=== PATIENT | female | born 1965 | race Caucasian/White ===

== ENCOUNTER 2021-08-16 13:52 | Outpatient (CLI) | payer BC, SELFPAY ==
--- NOTE | 2021-08-16 13:56 | CT_ITS ---
STUDY: CT ABDOMEN AND PELVIS WITH AND WITHOUT CONTRAST REASON FOR EXAM: Female, 55 years old. Hematuria.Renal cyst. RADIATION DOSAGE (If Supplied By Facility): CTDIvol = ( 19.10 ) mGy, DLP = ( 2843.01 ) mGycm TECHNIQUE: Transaxial images were obtained from the dome of the diaphragm to the symphysis pubis without oral contrast. 100mL [id number] was administered. Sagittal and coronal images were reconstructed. Individualized dose optimization techniques were used for this CT. COMPARISON: None. FINDINGS: The visualized lung bases are unremarkable. The visualized portions of the heart are within normal limits. There is decreased attenuation of the liver consistent with steatosis. There are surgical clips in the gallbladder fossa consistent with a prior cholecystectomy. The common bile duct measures 1.15 cm. Normal spleen. Normal pancreas. Normal bilateral adrenal glands. Normal right kidney. There is a 4.1 mm calculus in the mid posterior pole of the left kidney. There is a small hiatal hernia. Normal small intestine. There are scattered colonic diverticula consistent with diverticulosis. The appendix is visualized and appears normal. Normal abdominal aorta. Normal inferior vena cava. Normal retroperitoneum. Normal urinary bladder. There is absence of the uterus consistent with a prior hysterectomy. Normal abdominal wall. Normal osseous structures. CT/CT Abd/Pelvis W/WO Contrast IMPRESSION: 4.1 mm nonobstructive calculus in the mid posterior pole calyx of the left kidney. Electronically Signed: Lucio Espinosa MD at 14:57 EST ,
== END 2021-08-16 23:59 | disposition home or self-care (01) ==
PROVIDERS: PCP Nurse Practitioner Family; Referring Provider Urology; Visit Provider Urology
DX: N20.0 Calculus of kidney (principal); N28.1 Cyst of kidney, acquired; R14.0 Abdominal distension (gaseous); R10.9 Unspecified abdominal pain
CPT/HCPCS: 74178; Q9967

== ENCOUNTER 2021-08-26 10:26 | Outpatient (CLI) | payer BC, SELFPAY ==
--- NOTE | 2021-08-26 10:34 | RAD_ITS ---
STUDY: X-RAY - ABDOMEN/PELVIS REASON FOR EXAM: Female, 55 years old. Flank pain TECHNIQUE: Single AP view of the abdomen / pelvis. COMPARISON: CT from 08/16/2021 FINDINGS: Normal visualized lung bases. There is an unremarkable bowel gas pattern. There is no demonstrated free abdominal air. The visualized liver, spleen and kidneys are grossly normal in size and morphology. There are calcified phleboliths in the pelvis. Normal visualized osseous structures. RAD/Abdomen Single View IMPRESSION: No acute findings, specifically, no suspicious calcifications overlying either renal shadow, or along the expected course of either ureter. Electronically Signed: Ze Ribera MD at 16:38 EST ,
== END 2021-08-26 23:59 | disposition home or self-care (01) ==
LOC: MTRAD 10:30
PROVIDERS: PCP Nurse Practitioner Family; Referring Provider Urology; Visit Provider Urology
DX: N20.0 Calculus of kidney (principal)
CPT/HCPCS: 74018

== ENCOUNTER 2021-09-03 16:26 | Outpatient (CLI) | payer BC, SELFPAY ==
[2021-09-03 18:01] LABS: Lipase 91 U/L (73-393); T4 Free Direct 1.04 ng/dL (0.76-1.46); Thyroid Stim Hormone (TSH) 1.46 uIU/mL (0.358-3.74)
[2021-09-05 18:52] LABS: H. Pylori Antibody (IgG) 0.14 (0.00-0.79); Thyroid Peroxidase AB < 8 IU/mL (0-34)
== END 2021-09-03 23:59 | disposition home or self-care (01) ==
LOC: MTLAB 16:28
PROVIDERS: PCP Nurse Practitioner Adult Health; Referring Provider Nurse Practitioner Adult Health; Visit Provider Nurse Practitioner Adult Health
DX: R11.0 Nausea (principal)
CPT/HCPCS: 36415; 83690; 84439; 84443; 86376; 86677

== ENCOUNTER 2021-09-18 12:53 | Emergency (ER) | payer BC, SELFPAY ==
[2021-09-18 12:54] VITALS: BP 154/77; PULSE 91; RESP 16; TEMP 36.6; O2SAT 98; BMI 32.4
--- NOTE | 2021-09-18 13:36 | EX.ED.DYSGE1 ---
HPI History of Present Illness Chief Complaint: Abd Pain Narrative Narrative: Patient presents with right upper quadrant abdominal pain and epigastric pain for about 2 months. It is worse with food. No fever chills cough or congestion. The pain does not radiate to her back, she is status post a cholecystectomy. Pain sometimes gets better with antacids and she is now on Prevacid. She does have an appointment in 2 weeks with [facility] Medical History Anxiety Chest pain Easy bruising Encounter for screening for COVID-19 Fatty liver Gastric reflux History of diverticulosis History of hiatal hernia History of rheumatic fever Injury of head and neck Non-smoker Rheumatoid arthritis Shortness of breath on exertion Wears glasses Home Medications ergocalciferol (vitamin D2) [Vitamin D2] 10 mcg PO DAILY 09/16/21 [History Last Taken Unknown] lansoprazole [Prevacid] 30 mg PO DAILY 09/16/21 [History Last Taken Unknown] psyllium [Metamucil] 1 packet PO DAILY 09/16/21 [History Last Taken Unknown] vitamin [id number]-[id number] acid 1 tab PO DAILY 09/16/21 [History Last Taken Unknown] sucralfate [Carafate] 1 g PO BID #20 tab 09/18/21 [Rx Last Taken Unknown] Allergy/AdvReac Type Severity Reaction Status Date / Time acetaminophen [From Vicodin] Allergy Unknown unknown Verified 07/11/21 10:10 codeine Allergy Unknown unknown Verified 07/11/21 10:10 hydrocodone [From Vicodin] Allergy Unknown unknown Verified 07/11/21 10:10 latex Allergy Unknown unknown Verified 07/11/21 10:10 epinephrine Allergy Chest Verified 09/16/21 13:52 tightness pantoprazole Allergy Nausea/Vom/ Verified 09/18/21 12:53 Diarrhea prednisone Allergy Swelling Verified 09/16/21 13:52 Family History Other Kidney disease Surgical History H/O: hysterectomy History of tonsillectomy Hx of cholecystectomy Hx of hand surgery Hx of shoulder surgery Social History Smoking Status: Never smoker ROS ROS ED ROS Narrative Past medical history: Reviewed overall unremarkable, she is status post a cholecystectomy. Medications: Reviewed Social history: Noncontributory Review of systems: All systems negative except as indicated General: No fever Eyes: No visual changes ENT: No upper airway congestion, normal voice Neck: No neck pain Cardiovascular: No chest pain Respiratory: No shortness of breath or cough Gastrointestinal: Abdominal pain as in HPI Genitourinary: No dysuria Musculoskeletal: Denies myalgias no difficulty with ambulation Skin: No rash Neurological: No memory loss, confusion or any focal weakness Psych: No recent behavioral changes Hematologic: No easy bleeding or easy bruising EXAM Physical Exam Narrative Exam Narrative: Physical exam General: Well nourished, Well developed, No Acute Distress Head: Normocephalic, Atraumatic Eyes: Conjunctiva not pale ENT: Moist mucous membranes Neck: Supple, Nontender, No lymphadenopathy Cardiovascular: Regular rate, Regular rhythm Respiratory: No distress, CTA bilaterally Abdomen: Soft, epigastric and right upper quadrant tenderness. Negative Astorga's. No lower abdominal pain. No CVA tenderness. No guarding or rebound. Back: Nontender, Normal Inspection. Negative for: CVA tenderness Extremities: Nontender, No edema Skin: Normal color, No rash Neurological: Alert, Normal Strength, Normal Sensation Psychological: Normal affect Const Vital Signs: 09/18/21 12:54 09/18/21 14:00 Temperature 97.8 F Temperature Source Temporal Pulse Rate 91 70 Respiratory Rate 16 Blood Pressure 154/77 H 137/74 H Blood Pressure Mean 102 95 Pulse Ox 98 Oxygen Delivery Method Room Air MDM MDM MDM Narrative Medical decision making narrative: Patient has an unremarkable ED work-up. She improved after GI cocktail and IV Pepcid. I will discharge her, she has an appointment with GI in 2 weeks. Otherwise I will add Carafate to her regimen of medications. Lab Data Labs: Laboratory Results - last 24 hr 09/18/21 09/18/21 13:35 13:35 WBC 5.7 RBC 4.89 Hgb 14.9 Hct 42.2 MCV 86.3 MCH 30.5 MCHC 35.3 RDW Std Deviation 39.0 RDW Coeff of Ananth 12.4 Plt Count 273 MPV 9.6 Immature Gran % (Auto) 0.400 Neut % (Auto) 66.7 Lymph % (Auto) 22.2 Hockley % (Auto) 7.7 Eos % (Auto) 2.6 Baso % (Auto) 0.4 Absolute Neuts (auto) 3.8 Absolute Lymphs (auto) 1.26 Nucleated RBC % 0 Sodium 140 Potassium 3.6 Chloride 106 Carbon Dioxide 30.0 Anion Gap 4 L BUN 12 Creatinine 0.92 Estim Creat Clear Calc 58.50 Est GFR (MDRD) Af Amer 82 Est GFR (MDRD) Non-Af 68 BUN/Creatinine Ratio 13.1 Glucose 113 H Calcium 9.3 Total Bilirubin 0.80 AST 21 ALT 30 Alkaline Phosphatase 89 Total Protein 7.3 Albumin 3.6 Globulin 3.7 Albumin/Globulin Ratio 1.0 Lipase 85 Discharge Plan Triage Chief Complaint: Abd Pain ED Provider: Demetrio Vega Dx/Rx/DC Orders Clinical Impression: Gastritis Instructions: ED Gastritis (Adult) Prescriptions: New sucralfate [Carafate] 1 gram tablet 1 g PO BID Qty: 20 RF: 0 No Action Metamucil Packet 1 packet PO DAILY RF: 0 lansoprazole [Prevacid] 30 mg Capsule,Delayed Release(Dr/Ec) 30 mg PO DAILY RF: 0 ergocalciferol (vitamin D2) [Vitamin D2] 200 mcg/mL (8,000 unit/mL) Drops 10 mcg PO DAILY RF: 0 vitamin L40-asdhu acid 2,500-400 mcg Tablet,Disintegrating 1 tab PO DAILY RF: 0 Primary Care Provider: Noreen Gamez Referrals: Wilfrid Alvarez DO [STAFF PHYSICIAN] - (As scheduled in 2 weeks) Noreen Gamez, FIBRE TECHNOLOGIST-C [Primary Care Provider] - 2 Days Disposition Disposition: Home, Self Care
[2021-09-18] MEDS: Mag Hydrox/Al Hydrox/Simeth 30 ML UDC PO (13:38)
[2021-09-18 13:49] LABS: Absolute Lymphocyte Count 1.26 X10^3/uL (0.83-4.51); Absolute Neutrophil Count 3.8 X10^3/uL (2.0-7.7); Basophil# 0.02 X10^3/uL; Basophil% 0.4 % (0-1); Eosinophil# 0.15 X10^3/uL; Eosinophils% 2.6 % (0-5); Hematocrit 42.2 % (37-47); Hemoglobin 14.9 g/dL (12.0-15.0); Lymphocyte # 1.26 X10^3/ul (0.83-4.51); Lymphocyte % 22.2 % (19-41); Mean Corp Hgb Conc 35.3 g/dL (32-36); Mean Corpuscular Hgb 30.5 pg (27.0-32.0); Mean Corpuscular Volume 86.3 fL (81-99); Mean Platelet Vol. 9.6 fl (6.2-12.0); Monocyte# 0.44 X10^3/uL; Monocyte% 7.7 % (0-10); NRBC Flagged by Analyzer 0 % (0-5); Neutrophil # 3.79 X10^3/uL (2.7-7.7); Neutrophil % 66.7 % (47-70); Platelet Count 273 K/mm3 (150-450); RBC Distribution Width CV 12.4 % (11.6-14.6); Red Blood Count 4.89 M/mm3 (4.2-5.4); White Blood Count 5.7 K/mm3 (4.4-11.0)
[2021-09-18 14:00] VITALS: BP 137/74; PULSE 70
[2021-09-18 14:04] LABS: AST(SGOT) 21 U/L (15-37); Alanine Aminotransfer ALT/SGPT 30 U/L (13-56); Albumin, Serum 3.6 g/dL (3.2-5.0); Alkaline Phosphatase 89 U/L (45-117); Anion Gap 4 (5-15); BUN 12 mg/dL (7-18); BUN/Creat Ratio 13.1 RATIO (10-20); Calcium,Total 9.3 mg/dL (8.5-10.1); Chloride 106 mmol/L (98-107); Creatinine, Serum 0.92 mg/dL (0.55-1.02); EST Glomerular Filtration Rate 68 mL/min (>60); Est Glom Filt Rate - Afr Amer 82 mL/min (>60); Globulin 3.7 g/dL (2.2-4.2); Glucose 113 mg/dL (74-106); Lipase 85 U/L (73-393); Potassium 3.6 mmol/L (3.5-5.1); Protein, Total 7.3 g/dL (6.4-8.2); Sodium Level 140 mmol/L (136-145)
[2021-09-18] MEDS: Famotidine 200 MG/20 ML MDV 20 MG in 0.9% Normal Saline (Pres. free 8 ML 300 MG IV (14:50)
[2021-09-18 15:13] VITALS: PULSE 70
== END 2021-09-18 15:13 | disposition home or self-care (01) ==
PROVIDERS: Emergency Provider Emergency Medicine; PCP Nurse Practitioner Adult Health; Visit Provider Emergency Medicine
DX: K29.70 Gastritis, unspecified, without bleeding (principal); M06.9 Rheumatoid arthritis, unspecified; K21.9 Gastro-esophageal reflux disease without esophagitis; Z79.899 Other long term (current) drug therapy
CPT/HCPCS: 80053; 83690; 85025; 96374; 99282; A4216; J3490

== ENCOUNTER 2021-09-20 05:44 | Day surgery (SDC) | payer BC, SELFPAY ==
[2021-09-20 06:19] VITALS: BP 128/63; PULSE 80; RESP 16; TEMP 36.3; O2SAT 97; BMI 32.3
[2021-09-20] MEDS: Lactated Ringers 1,000 ML 15 ML IV (06:24)
[2021-09-20] MEDS: Cefazolin 2 GM in 0.9% Normal Saline 100 ML IV (07:24)
--- NOTE | 2021-09-20 07:30 | DCINST_ITS ---
Discharge Instructions Diet Discharge Diet: No restrictions Activity Discharge Activity: Return to Normal Activity Dressing / Incision Call your doctor if you observe: Fever of 101 or Higher, Inability to urinate and Inability to have a bowel movement Follow Up Care Please Follow Up With: Ligia Booth MD When: in 3-4 weeks, call office for appt Test Results: Test results from this visit will be discussed in further detail at your follow-up appointment, if applicable. Discharge Plan Admission Attending Provider: Ligia Booth Primary Care Provider: Noreen Gamez Discharge Orders/Prescriptions Prescriptions: Continued psyllium Packet 1 packet PO DAILY RF: 0 lansoprazole [Prevacid] 30 mg Capsule,Delayed Release(Dr/Ec) 30 mg PO DAILY RF: 0 ergocalciferol (vitamin D2) 200 mcg/mL (8,000 unit/mL) Drops 10 mcg PO DAILY RF: 0 vitamin Z63-lcbji acid 2,500-400 mcg Tablet,Disintegrating 1 tab PO DAILY RF: 0 sucralfate [Carafate] 1 gram tablet 1 g PO BID Qty: 20 RF: 0 Other Ambulatory Orders: Basic Metabolic Profile (BMP) (Routine) Timeframe: 20210919 Facility: [facility] - Location: Laboratory Ordered By: Dr. Ligia Booth CBC-Complete Blood Cnt No Diff (Routine) Timeframe: 20210919 Facility: [facility] - Location: Laboratory Ordered By: Dr. Ligia Booth Referrals / Follow Up: Noreen Gamez NP-C [Primary Care Provider] - Disposition Disposition (needs filled in before D/C Order can be placed): Home, Self Care
--- NOTE | 2021-09-20 07:31 | PCM.OPRPT ---
Problems Associated Problem List Diagnoses (1) Hematuria: (2) Other urethral stricture, female: Report of Operation Date of Procedure: 09/20/21 Pre-Operative Diagnosis: Hematuria, urethral stricture Post-Operative Diagnosis: Same Surgery/Procedure Performed:: Urethral dilation, cystoscopy Surgeon: Ligia Booth Type of Anesthesia: MAC Specimen's removed: None Description of Procedure: The patient is a 55-year-old female who is under able to have a in office cystoscopy with urethral dilation secondary to discomfort who presents for further evaluation of her microscopic hematuria. Informed consent was obtained. The patient was taken to the operating room and placed on the operating room table. Anesthesia monitored the head, neck, airway, IV access and vital signs throughout the case. Once anesthesia was appropriately ministered, the patient was placed into dorsal lithotomy position was prepped and draped in usual sterile fashion. The urethra was dilated without issue from 14 Tanzanian to 28 Tanzanian using urethral sounds. The cystoscope easily entered through the urethra into the urinary bladder under direct visualization. Bilateral ureteral orifices were in the correct anatomic position in the area of the trigone. There were no areas of mass, ulceration, erythema or abnormality identified. There were no foreign bodies. At this time the patient's bladder was emptied and the case was terminated. She was awakened and taken to the recovery room in good condition. There were no complications during this procedure. Admit VTE Documentation VTE Present on Admission: Yes VTE Mechan Device Prophylaxis: SCD's VTE Pharm Prophylaxis ordered?: No Reason prophylaxis not ordered:: Treatment Not Indicated
[2021-09-20 07:45] VITALS: BP 107/51; BP 128/63; PULSE 83; RESP 16; TEMP 36.6; O2SAT 94
[2021-09-20 07:50] VITALS: BP 100/55; BP 128/63; PULSE 76; RESP 16; O2SAT 93
[2021-09-20 07:55] VITALS: BP 103/62; BP 128/63; PULSE 65; RESP 16; O2SAT 94
[2021-09-20 08:00] VITALS: BP 111/67; BP 128/63; PULSE 63; RESP 16; TEMP 36.2; O2SAT 97
[2021-09-20 08:32] VITALS: BP 128/63
== END 2021-09-20 23:59 | disposition home or self-care (01) ==
LOC: SDC 05:45 → AC 05:46
PROVIDERS: PCP Nurse Practitioner Adult Health; Referring Provider Urology; Visit Provider Urology
PROC: 0T7D8ZZ Dilation of Urethra, Via Natural or Artificial Opening Endoscopic (ICD-10-PCS; CPT 52281; principal; 2021-09-20 07:20)
DX: N35.92 Unspecified urethral stricture, female (principal); M06.9 Rheumatoid arthritis, unspecified; N39.44 Nocturnal enuresis; N39.46 Mixed incontinence; R31.21 Asymptomatic microscopic hematuria; R35.1 Nocturia; K21.9 Gastro-esophageal reflux disease without esophagitis; K44.9 Diaphragmatic hernia without obstruction or gangrene; Z79.899 Other long term (current) drug therapy; Z20.822 Contact with and (suspected) exposure to COVID-19
CPT/HCPCS: 52281; 87426; C9803; J7120; J2405

== ENCOUNTER 2021-10-01 09:50 | Outpatient (CLI) | payer BC, SELFPAY ==
[2021-10-01 10:58] LABS: Erythrocyte Sedimentation Rate 17 mm/hr (0-30)
[2021-10-01 11:02] LABS: Prothrombin Time (Protime)PT. 12.2 SECONDS (11.7-14.9)
[2021-10-01 11:39] LABS: CRP 4.98 mg/L (0.0-3.0); Ferritin 151 ng/mL (8-252); LDH 210 U/L (84-246)
[2021-10-01 11:47] LABS: HIV - WCH Non-Reactive (Nonreactive)
[2021-10-02 15:08] LABS: Anti-Centromere B Ab <0.2 AI (0.0-0.9); Anti-Chromatin 0.2 AI (0.0-0.9); Anti-Jo <0.2 AI (0.0-0.9); Anti-Scleroderma-70 AB <0.2 AI (0.0-0.9); RNP Ab 0.6 AI (0.0-0.9); SJOGREN'S Anti-SS-A test < 0.2 AI (0.0-0.9); SJOGREN'S Anti-SS-B test < 0.2 AI (0.0-0.9); Smith Ab <0.2 AI (0.0-0.9)
[2021-10-02 18:50] LABS: Anti-Mitochondrial AB <20.0 Units (0.0-20.0); Anti-dsDNA Ab 1 IU/mL (0-9)
[2021-10-04 07:08] LABS: Angiotensin Convert Enzyme 70 U/L (14-82); Ceruloplasmin 30.6 mg/dL (19.0-39.0); Cytoplasmic Ab (C-ANCA) <1:20 titer (Neg:<1:20); HEPATITIS B SURFACE AG Negative (Negative); Hepatitis A IgM Antibody Negative (Negative); Hepatitis B Core AB IgM Negative (Negative)
[2021-10-04 09:43] LABS: AFP, Tumor Marker 1.9 ng/mL (0.0-9.2); Anti-Smooth Muscle ABS 4 Units (0-19); Copper, Serum or Plasma 140 ug/dL (80-158); Haptoglobin 163 mg/dL (33-346); Hep C Antibodies <0.1 s/co ratio (0.0-0.9); Perinuclear Ab (P-ANCA) <1:20 titer (Neg:<1:20)
[2021-10-04 15:08] LABS: Endomysial Antibody IgA Negative (Negative); Immunoglobulin A 158 mg/dL (87-352)
[2021-10-04 16:51] LABS: t-Transglutaminase IgA <2 U/mL (0-3)
== END 2021-10-01 23:59 | disposition home or self-care (01) ==
LOC: LAB 09:51
PROVIDERS: PCP Nurse Practitioner Adult Health; Referring Provider Nurse Practitioner Adult Health; Visit Provider Nurse Practitioner Adult Health
DX: K76.0 Fatty (change of) liver, not elsewhere classified (principal); R10.9 Unspecified abdominal pain; Z83.79 Family history of other diseases of the digestive system
CPT/HCPCS: 36415; 80074; 82105; 82140; 82164; 82390; 82525; 82728; 82784; 83010; 83036; 83516; 83615; 85610; 85652; 86140; 86225; 86235; 86255; 86256; 86703

== ENCOUNTER 2021-10-08 07:15 | Outpatient (CLI) | payer BC, SELFPAY ==
--- NOTE | 2021-10-08 07:17 | US_ITS ---
STUDY: ABDOMINAL ULTRASOUND - ELASTOGRAPHY REASON FOR VISIT: Female, 55 years old. Fatty infiltration of the liver. TECHNIQUE: Liver stiffness measurements were obtained on a Urbful RS 85 ultrasound machine using a CA 1-7 probe following the SRU guidelines. 3 measurements were obtained using a 2-D-SWE method. The IQR/M was 28% suggesting a quality data set. TECHNICAL QUALITY: Adequate. COMPARISON: Comparison is made with prior study done earlier today. FINDINGS: Liver: Fatty infiltration of the liver. Median liver stiffness measured 7 kPa. US/Elastography Parenchyma/Organ IMPRESSION: Liver stiffness measures 7 kPa compatible with F2-F3 (Mild to moderate liver fibrosis) Metavir score. Electronically Signed: Lucio Espinosa MD at 12:23 EDT ,
--- NOTE | 2021-10-08 07:18 | US_ITS ---
STUDY: ABDOMINAL ULTRASOUND - RIGHT UPPER QUADRANT REASON FOR VISIT: Female, 55 years old FATTY LIVER TECHNIQUE: Ultrasound evaluation of the right upper quadrant was performed with real-time and static frye-scale imaging. TECHNICAL QUALITY: Adequate. COMPARISON: Comparison is made with prior CT scan dated 08/16/2021. FINDINGS: Liver: The liver measures 13.9 cm. There is increased echogenicity consistent with fatty infiltration. The bile ducts are within normal limits. There is hepatic color flow. The direction of portal flow is hepatopetal. There is no demonstrated mass lesion. Gallbladder: The patient is status post cholecystectomy. Common Bile Duct (C.B.D.): The common bile duct measures 11 mm. Pancreas: Normal size of the head, body and tail of the pancreas. There is normal echogenicity of the pancreas. There is no demonstrated pancreatic mass or cyst. Right Kidney: Normal size of the right kidney. The right kidney measures 9.8 cm x 4.1 cm x 4.4 cm. Normal renal cortex. The right cortex measures 1.7 cm. There is no demonstrated renal mass or cyst. There is no right hydronephrosis. Tiny nonobstructive right intrarenal calculus. US/Abdomen Limited IMPRESSION: Fatty infiltration of the liver. The patient is status post cholecystectomy. Electronically Signed: Lucio Espinosa MD at 12:21 EDT ,
== END 2021-10-08 23:59 | disposition home or self-care (01) ==
LOC: US 07:16
PROVIDERS: PCP Nurse Practitioner Adult Health; Referring Provider Nurse Practitioner Adult Health; Visit Provider Nurse Practitioner Adult Health
DX: K76.0 Fatty (change of) liver, not elsewhere classified (principal); K21.9 Gastro-esophageal reflux disease without esophagitis; Z83.79 Family history of other diseases of the digestive system
CPT/HCPCS: 76705; 76981

== ENCOUNTER 2022-10-12 14:29 | Emergency (ER) | payer BC, SELFPAY ==
[2022-10-12 14:31] VITALS: BP 139/94; PULSE 92; RESP 18; TEMP 36.6
[2022-10-12 14:32] VITALS: BP 139/94; PULSE 92; RESP 16; TEMP 36.6; BMI 30.4
[2022-10-12 14:38] VITALS: O2SAT 97
--- NOTE | 2022-10-12 15:01 | EDS_ITS ---
HPI <PRIYANKA Buchanan - Last Filed: 10/12/22 17:27> History of Present Illness Chief Complaint: Cough Narrative Narrative: 56-year-old female had sinus congestion for the last 1 to 2 weeks and is now settled into a cough. Cough is keeping her up at night she is having wheezing last few days. She not short of breath. No chest pain. No fever or chills. She denies history of asthma or COPD and does not smoke. PFSH <PRIYANKA Buchanan - Last Filed: 10/12/22 17:27> [facility] Medical History (Updated 10/12/22 @ 15:36 by PRIYANKA Buchanan) Anxiety Chest pain Easy bruising Encounter for screening for COVID-19 Fatty liver Fatty liver FH: cirrhosis Gastric reflux GERD (gastroesophageal reflux disease) Hematuria History of diverticulosis History of hiatal hernia History of rheumatic fever Injury of head and neck Non-smoker Other urethral stricture, female Rheumatoid arthritis RLQ abdominal pain RUQ pain Shortness of breath on exertion Vitamin B deficiency Vitamin D deficiency Wears glasses Home Medications lansoprazole 30 mg capsule,delayed release (Prevacid) 30 mg PO DAILY 09/16/21 [History Last Taken 09/20/21] Ventolin HFA 90 mcg/actuation aerosol inhaler (albuterol sulfate) 1 - 2 puff inhalation Q4H PRN PRN Wheezing 30 days #8 grams 10/12/22 [Rx Last Taken Unknown] Allergy/AdvReac Type Severity Reaction Status Date / Time codeine Allergy Unknown unknown Verified 10/01/21 08:30 hydrocodone [From Vicodin] Allergy Unknown unknown Verified 10/01/21 08:30 latex Allergy Unknown unknown Verified 10/01/21 08:30 epinephrine Allergy Chest Verified 10/01/21 08:30 tightness pantoprazole Allergy Nausea/Vom/ Verified 10/01/21 08:30 Diarrhea prednisone Allergy Swelling Verified 10/01/21 08:30 Family History Mother Fatty liver Liver cirrhosis Other Kidney disease Surgical History H/O: hysterectomy History of tonsillectomy Hx of cholecystectomy Hx of hand surgery Hx of shoulder surgery Social History Smoking Status: Never smoker alcohol intake: never substance use type: does not use ROS <PRIYANKA Buchanan - Last Filed: 10/12/22 17:27> ROS ED ROS Narrative Constitutional: Positive for malaise. Negative for fever, chills. ENT: Positive for ear pressure, rhinorrhea. CVS: Negative for chest pain. Respiratory: Positive for cough. GI: Negative for abdominal pain, nausea, vomiting. Neuro: Negative for headache. EXAM <PRIYANKA Buchanan - Last Filed: 10/12/22 17:27> Physical Exam Narrative Exam Narrative: CONST: Patient sitting in no acute distress. EYES: Normal inspection. ENT: Normal inspection, moist mucous membranes and normal oropharynx, nares clear, normal TMs bilaterally. NECK: Normal inspection. No meningismus. RESP: No respiratory distress, crackles/rhonchi both lower lobes left greater than right. CVS: Regular rate and rhythm, no murmur, no gallop. SKIN: Color normal, no rash, warm, dry, intact. EXTREMITIES: Normal appearance, no pedal edema. NEURO: Oriented x4. PSYCH: Normal affect. Const Vital Signs: 10/12/22 14:32 10/12/22 14:31 10/12/22 14:38 Temperature 97.9 F 97.9 F Temperature Source Temporal Temporal Pulse Rate 92 92 Respiratory Rate 16 18 Respiratory Effort Normal Non-Labored Respiratory Depth Normal Respiratory Pattern Tachypnea Blood Pressure 139/94 H 139/94 H Blood Pressure Mean 109 109 Oxygen Delivery Method Room Air 10/12/22 15:14 Temperature Temperature Source Pulse Rate 90 Respiratory Rate 18 Respiratory Effort Respiratory Depth Respiratory Pattern Normal Blood Pressure Blood Pressure Mean Oxygen Delivery Method <Dr. Ramirez Casillas DO - Last Filed: 10/12/22 17:39> Physical Exam Const Vital Signs: 10/12/22 14:32 10/12/22 14:31 10/12/22 14:38 Temperature 97.9 F 97.9 F Temperature Source Temporal Temporal Pulse Rate 92 92 Respiratory Rate 16 18 Respiratory Effort Normal Non-Labored Respiratory Depth Normal Respiratory Pattern Tachypnea Blood Pressure 139/94 H 139/94 H Blood Pressure Mean 109 109 Oxygen Delivery Method Room Air 10/12/22 15:14 Temperature Temperature Source Pulse Rate 90 Respiratory Rate 18 Respiratory Effort Respiratory Depth Respiratory Pattern Normal Blood Pressure Blood Pressure Mean Oxygen Delivery Method [facility] <Brianda Matias PA - Last Filed: 10/12/22 17:27> [facility] Narrative Medical decision making narrative: History gathered from: Patient and spouse Patient having cough and congestion now with wheezing. No shortness of breath. She is nontoxic-appearing with normal vital signs. During my examination she is 99% on room air and speaking full sentences. She does have bibasilar wheezing. CXR shows no acute process and she had symptom improvement after DuoNeb. Patient had a rapid COVID test negative at home this morning so does not want repeat testing. We discussed she most likely has a viral URI with bronchospasm and I prescribed an inhaler. Discussed return precautions and she was discharged in stable condition. Differential: Viral URI versus pneumonia Test considered but not ordered: Patient has no chest pain or shortness of breath so no indication for EKG/cardiac enzymes Radiography Diagnostic Testing: Clinical Impression(s) from Imaging Studies Chest X-Ray 10/12/22 15:16 IMPRESSION: No radiographic evidence of acute cardiopulmonary disease. Electronically Signed: Al Mason MD at 15:47 EDT Reading Location ID and State: [facility] / [place] Tel , Service support , ED attending interpretation 1 view chest x-ray shows normal heart size, no acute infiltrate. <Dr. Ramirez Casillas DO - Last Filed: 10/12/22 17:39> [facility] Narrative Medical decision making narrative: History gathered from: Patient and spouse Patient having cough and congestion now with wheezing. No shortness of breath. She is nontoxic-appearing with normal vital signs. During my examination she is 99% on room air and speaking full sentences. She does have bibasilar wheezing. CXR shows no acute process and she had symptom improvement after DuoNeb. Patient had a rapid COVID test negative at home this morning so does not want repeat testing. We discussed she most likely has a viral URI with bronchospasm and I prescribed an inhaler. Discussed return precautions and she was discharged in stable condition. Differential: Viral URI versus pneumonia Test considered but not ordered: Patient has no chest pain or shortness of breath so no indication for EKG/cardiac enzymes Attending note: Patient seen and evaluated with analyst microbiology lab. I perform my own [id number] evaluation. I agree with the plan of work-up. 3 days increasing cough with wheezing. Denies tobacco, denies asthma or COPD. Denies fevers or myalgias. Exam after aerosol treatments no current wheezing improving symptoms. 1 view chest x-ray interpreted by myself showed no signs of infiltrates. Discussed viral syndrome with bronchospasm. MDI inhaler prescribed. Discussed adjunct therapies for cough. Return precautions otherwise outpatient follow-up. All questions were answered. Radiography Diagnostic Testing: Clinical Impression(s) from Imaging Studies Chest X-Ray 10/12/22 15:16 IMPRESSION: No radiographic evidence of acute cardiopulmonary disease. Electronically Signed: Al Mason MD at 15:47 EDT Reading Location ID and State: [address] [place] [address] Tel , Service support , Discharge Plan Triage Chief Complaint: Cough ED Midlevel Provider: Brianda Matias ED Provider: Ramirez Casillas Dx/Rx/DC Orders Clinical Impression: Upper respiratory infection, Acute bronchospasm Instructions: ED URI, Viral W/ Wheezing (Adult) Prescriptions: New albuterol sulfate [Ventolin HFA] 90 mcg/actuation HFA aerosol inhaler 1 - 2 puff inhalation Q4H PRN PRN (Reason: Wheezing) 30 Days Qty: 8 0RF No Action lansoprazole [Prevacid] 30 mg Capsule,Delayed Release(Dr/Ec) 30 mg PO DAILY Primary Care Provider: Noreen Gamez Referrals: Noreen Gamez, BAG SHAKER-C [Primary Care Provider] - Activity Restrictions/Additional Instructions: Your chest x-ray showed no pneumonia. You likely have a viral upper respiratory infection with wheezing. I prescribed an inhaler. You can take [id number] cough medication. If symptoms are worsening return to ER. Disposition Disposition: Home, Self Care Discharge Date/Time: 10/12/22 15:55
[2022-10-12] MEDS: Ipratropium/Albuterol Sulfate 3 ML AMPUL.NEB INHALATION (15:13)
[2022-10-12 15:14] VITALS: PULSE 90; RESP 18
--- NOTE | 2022-10-12 15:16 | RAD_ITS ---
INDICATION: cough EXAMINATION/TECHNIQUE: X-RAY - portable upright AP chest x-ray COMPARISON: None. FINDINGS: LINES/DEVICES: None. LUNGS: Mild bibasilar subsegmental atelectasis or fibrotic changes. No consolidation, vascular congestion or pleural effusion. MEDIASTINUM AND CARDIOVASCULAR STRUCTURES: Cardiac silhouette not enlarged. Central airways and mediastinal contour are unremarkable. BONES AND SOFT TISSUES: Unremarkable. RAD/Chest 1 View (Portable) IMPRESSION: No radiographic evidence of acute cardiopulmonary disease. Electronically Signed: Al Mason MD at 15:47 EDT ,
== END 2022-10-12 15:55 | disposition home or self-care (01) ==
PROVIDERS: Emergency Provider Emergency Medicine; PCP Nurse Practitioner Adult Health; Visit Provider Emergency Medicine
DX: J06.9 Acute upper respiratory infection, unspecified (principal); J98.01 Acute bronchospasm; K76.0 Fatty (change of) liver, not elsewhere classified
CPT/HCPCS: 71045; 94640; 99282

== ENCOUNTER → 2023-01-04 | Outpatient (CLI) | payer BC, SELFPAY ==
[2023-01-04 15:10] LABS: Bacteria 0 SEEN /hpf (None Seen); Mucous, Urine 0 SEEN /hpf (<or=2+)
[2023-01-04 15:24] LABS: Color, Urine Yellow (Yellow); Glucose, Dipstick Normal (Normal); Ketone-Dipstick Negative (Negative); Leukocyte Esterase-Dipstick 25 /ul (Negative); Nitrite-Dipstick Negative (Negative); Occult Blood-Urine 25 /ul (Negative); Protein-Dipstick 15 mg/dl (Negative); Specific Gravity, Urine 1.015 (1.002-1.030); Urine Bilirubin Dipstick Negative (Negative); Urine Clarity Sl. Cloudy (Clear); Urine Urobilinogen Normal (Normal); Urine pH 6.5 (5.0 - 8.0)
[2023-01-04 15:55] LABS: Amorphous Sediment 1+ URATE; Red Blood Cells-Urine 0-5 SEEN /hpf (0-5); Squamous Epithelial Cells - UA 0-5 SEEN /hpf (5-10); White Blood Cells 0-5 SEEN /hpf (0-5)
== END | disposition home or self-care (01) ==
PROVIDERS: Visit Provider Nurse Practitioner Family
DX: R30.0 Dysuria (principal)
CPT/HCPCS: 81001; 87086; 87088

== ENCOUNTER 2023-01-07 17:22 | Emergency (ER) | payer BC, SELFPAY ==
[2023-01-07 17:23] VITALS: BP 155/89; PULSE 87; RESP 16; TEMP 36.4; O2SAT 98; BMI 45.3
--- NOTE | 2023-01-07 18:33 | CT_ITS ---
STUDY: CT Abdomen And Pelvis W/O Contrast Injection 01/07/2023 7:20 PM REASON FOR EXAM: Female, 57 years old. ABDOMINAL PAIN Kidney Stone TECHNIQUE: Transaxial images were obtained without oral contrast, and without intravenous contrast. Individualized dose optimization techniques were used for this CT. COMPARISON: 08.16.21. FINDINGS: The visualized lung bases are unremarkable. The visualized portions of the heart are within normal limits. Unremarkable liver. There are surgical clips in the gallbladder fossa consistent with a prior cholecystectomy. Unremarkable spleen. Unremarkable pancreas. There is dilation of the common bile duct. A common bile duct stone is not seen. The CBD diameter is 11 mm. This is a stable finding. Unremarkable bilateral adrenal glands. No acute findings of the right kidney. Non obstructive 5.2 mm left renal parenchymal stones. Unremarkable visualized stomach. Unremarkable small intestine. There are multiple colonic diverticula consistent with diverticulosis. The appendix is visualized and appears unremarkable. There are no acute findings of the abdominal aorta. Unremarkable inferior vena cava. Subcentimeter mesenteric lymph nodes. Unremarkable urinary bladder. There is absence of the uterus consistent with a prior hysterectomy. Unremarkable abdominal wall. Unremarkable osseous structures. CT/Abdomen/Pelvis without Cont IMPRESSION: (NOT LISTED IN ORDER OF SIGNIFICANCE) There is dilation of the common bile duct. A common bile duct stone is not seen. The CBD diameter is 11 mm. This is a stable finding. Non obstructive 5.2 mm left renal parenchymal stone. This is stable. There are surgical clips in the gallbladder fossa consistent with a prior cholecystectomy. There are multiple colonic diverticula consistent with diverticulosis. Other findings as above. Electronically Signed: Cosme Nicole MD at 19:29 EDT ,
[2023-01-07] MEDS: Ketorolac 15 MG/ML Vial IV (18:51)
[2023-01-07] MEDS: 0.9% Normal Saline 1,000 ML 999 ML IV (18:51)
[2023-01-07 18:56] LABS: Absolute Lymphocyte Count 1.78 X10^3/uL (0.83-4.51); Absolute Neutrophil Count 7.2 X10^3/uL (2.0-7.7); Basophil# 0.02 X10^3/uL; Basophil% 0.2 % (0-1); Eosinophil# 0.14 X10^3/uL; Eosinophils% 1.4 % (0-5); Hematocrit 40.8 % (37-47); Hemoglobin 13.8 g/dL (12.0-15.0); Lymphocyte # 1.78 X10^3/ul (0.83-4.51); Lymphocyte % 18.4 % (19-41); Mean Corp Hgb Conc 33.8 g/dL (32-36); Mean Corpuscular Hgb 30.2 pg (27.0-32.0); Mean Corpuscular Volume 89.3 fL (81-99); Mean Platelet Vol. 9.6 fl (6.2-12.0); Monocyte# 0.48 X10^3/uL; NRBC Flagged by Analyzer 0 % (0-5); Neutrophil # 7.22 X10^3/uL (2.7-7.7); Neutrophil % 74.8 % (47-70); Platelet Count 289 K/mm3 (150-450); RBC Distribution Width CV 12.7 % (11.6-14.6); RBC Distribution Width SD 41.4 fl (35.1-43.9); Red Blood Count 4.57 M/mm3 (4.2-5.4); White Blood Count 9.7 K/mm3 (4.4-11.0)
[2023-01-07 19:17] LABS: AST(SGOT) 18 U/L (15-37); Alanine Aminotransfer ALT/SGPT 25 U/L (13-56); Albumin, Serum 3.5 g/dL (3.2-5.0); Alkaline Phosphatase 102 U/L (45-117); Bilirubin, Direct 0.11 mg/dL (0.00-0.30); Globulin 3.4 g/dL (2.2-4.2); Protein, Total 6.9 g/dL (6.4-8.2)
[2023-01-07 19:22] VITALS: PULSE 69
[2023-01-07 19:29] LABS: Bacteria 0 SEEN /hpf (None Seen); Mucous, Urine 0 SEEN /hpf (<or=2+); Squamous Epithelial Cells - UA 0 SEEN /hpf (5-10)
[2023-01-07 19:31] LABS: Color, Urine Yellow (Yellow); Glucose, Dipstick Normal (Normal); Ketone-Dipstick Negative (Negative); Leukocyte Esterase-Dipstick 25 /ul (Negative); Nitrite-Dipstick Negative (Negative); Occult Blood-Urine 10 /ul (Negative); Protein-Dipstick Negative (Negative); Urine Bilirubin Dipstick Negative (Negative); Urine Clarity Clear (Clear); Urine Urobilinogen Normal (Normal)
[2023-01-07 19:42] LABS: Anion Gap 6 (5-15); BUN 15 mg/dL (7-18); BUN/Creat Ratio 15.2 RATIO (10-20); Chloride 106 mmol/L (98-107); Creatinine, Serum 0.98 mg/dL (0.55-1.02); EST Glomerular Filtration Rate 62 mL/min (>60); Est Glom Filt Rate - Afr Amer 75 mL/min (>60); Estimated Creatinine Clearance 84.07 ml/min; Glucose 108 mg/dL (74-106); Lipase 37 U/L (13-75); Potassium 3.8 mmol/L (3.5-5.1); Sodium Level 139 mmol/L (136-145)
[2023-01-07 19:50] LABS: Red Blood Cells-Urine 0-5 SEEN /hpf (0-5); White Blood Cells 0-5 SEEN /hpf (0-5)
--- NOTE | 2023-01-07 20:25 | EX.ED.DYSGE1 ---
HPI History of Present Illness Chief Complaint: Flank Pain PFSH PFSH Medical History Anxiety Chest pain Easy bruising Encounter for screening for COVID-19 Fatty liver Fatty liver FH: cirrhosis Gastric reflux GERD (gastroesophageal reflux disease) Hematuria History of diverticulosis History of hiatal hernia History of rheumatic fever Injury of head and neck Non-smoker Other urethral stricture, female Rheumatoid arthritis RLQ abdominal pain RUQ pain Shortness of breath on exertion Vitamin B deficiency Vitamin D deficiency Wears glasses Home Medications lansoprazole 30 mg capsule,delayed release (Prevacid) 30 mg PO DAILY 09/16/21 [History Last Taken 09/20/21] Ventolin HFA 90 mcg/actuation aerosol inhaler (albuterol sulfate) 1 - 2 puff inhalation Q4H PRN PRN Wheezing 30 days #8 grams 10/12/22 [Rx Last Taken Unknown] ciprofloxacin HCl 250 mg tablet 250 mg PO Q12H #10 tabs 01/04/23 [Rx Last Taken Unknown] Allergy/AdvReac Type Severity Reaction Status Date / Time codeine Allergy Unknown unknown Verified 01/04/23 08:36 hydrocodone [From Vicodin] Allergy Unknown unknown Verified 01/04/23 08:36 latex Allergy Unknown unknown Verified 01/04/23 08:36 epinephrine Allergy Chest Verified 01/04/23 08:36 tightness pantoprazole Allergy Nausea/Vom/ Verified 01/04/23 08:36 Diarrhea prednisone Allergy Swelling Verified 01/04/23 08:36 Family History Mother Fatty liver Liver cirrhosis Other Kidney disease Surgical History H/O: hysterectomy History of tonsillectomy Hx of cholecystectomy Hx of hand surgery Hx of shoulder surgery Social History Smoking Status: Never smoker alcohol intake: never substance use type: does not use EXAM Physical Exam Const Vital Signs: 01/07/23 17:23 01/07/23 19:22 Temperature 97.5 F L Temperature Source Temporal Pulse Rate 87 69 Respiratory Rate 16 Blood Pressure 155/89 H Blood Pressure Mean 111 Pulse Ox 98 Oxygen Delivery Method Room Air MDM MDM MDM Narrative Medical decision making narrative: HISTORY OF PRESENT ILLNESS: 57-year-old female here with 2 weeks of left flank pain. States he has history cirrhosis and kidney stones. She is concerned she may have another kidney stone. She notes she is recently treated for UTI. This culture came back negative per patient and nurse practitioner report. She denies any fever, chest pain, syncope. No history of connective tissue diseases or no family or personal history of aortic aneurysms REVIEW OF SYSTEMS: Pertinent positives: Flank pain Pertinent negatives: Fever, syncope PHYSICAL EXAM: Nursing triage notes reviewed, Vital signs reviewed Constitutional: please see mdm HENT: MMM Eyes: Pupils equal round and reactive to light, Extraocular muscles intact Neck: No stridor, no JVD, full neck ROM Lungs: Clear to auscultation, No wheezing or rales. No increased work of breathing, no conversational dyspnea, no accessory muscle use, no nasal flaring. No respiratory distress noted Heart: Regular rate and rhythm, No murmurs, No rubs and No gallops, 2+ distal pulses (radial, femoral, posterior tibial) in all extremities Abdomen: Soft, there is no tenderness, rigidity, rebound or guarding, no obvious peritoneal signs, no palpable pulsatile abdominal masses, no auscultated abdominal bruit : No CVAT Extremities: No edema Neuro: No focal neurological deficits, cranial nerves II through XII intact, 5/5 strength in all extremities. Intact sensation to light touch in all extremities, 2+ reflexes bilateral patella tendons. Normal gait. No ataxia. Skin: No rash or lesions noted MEDICAL DECISION MAKING: Chief Complaint: Flank pain History obtained from others: From the patient's nurse practitioner was concerned about kidney stones Consults: none ALL IMAGES (IF OBTAINED) HAVE BEEN PERSONALLY REVIEWED AND INTERPRETED BY MYSELF. CBC without leukocytosis, severe anemia, no thrombocytopenia. BMP without evidence of significant electrolyte abnormalities, no anion gap, no acute kidney injury. LFTs show no evidence of hepatobiliary pathology. Urinalysis shows no evidence of urinary inflammation suggestive of UTI Lipase is wnl indicating no pancreatic inflammation. MDM Narrative: Patient was hemodynamically stable, afebrile, nontoxic-appearing. There are no pulse abdominal masses or also stated bruits. There is no CVA tenderness. The patient abdominal exam was benign I considered the following differential diagnosis: Nephrolithiasis, pyelonephritis, AAA musculoskeletal etiology Patient's labs and images were negative for systemic inflammation, severe anemia, severe electrolyte maladies, QUENTIN, UTI. CT was negative for acute surgical pathology of the abdomen or pelvis. No clear etiology of the patient's complaints I suspect muscle skeletal etiology. Gave anti-inflammatories and Tylenol pain control instructions. Gave strict return precautions and follow-up instructions The patient and/or family, caregivers express understanding. The patient and/or family, caregivers agrees with the plan. Total critical care time today provided was at least 0 minutes. This excludes separately billable procedures. Critical care time (if documented) is secondary to the patient having high probability of clinically significant/life threatening deterioration in the patient's condition which required my urgent intervention. Shared decision making: I will have a discussion with the patient and or visitors regarding risk/benefits of further testing or admission. They will be made aware of of the risk/benefits inherent in this decision they will be given the opportunity to voice understanding. Lab Data Attestation: I reviewed the patient's lab results. Labs: Laboratory Results - last 24 hr 01/07/23 01/07/23 01/07/23 18:35 19:20 19:20 WBC 9.7 RBC 4.57 Hgb 13.8 Hct 40.8 MCV 89.3 MCH 30.2 MCHC 33.8 RDW Std Deviation 41.4 RDW Coeff of Ananth 12.7 Plt Count 289 MPV 9.6 Immature Gran % (Auto) 0.200 Neut % (Auto) 74.8 H Lymph % (Auto) 18.4 L [place] % (Auto) 5.0 Eos % (Auto) 1.4 Baso % (Auto) 0.2 Absolute Neuts (auto) 7.2 Absolute Lymphs (auto) 1.78 Nucleated RBC % 0 Sodium 139 Potassium 3.8 Chloride 106 Carbon Dioxide 27.0 Anion Gap 6 BUN 15 Creatinine 0.98 Estim Creat Clear Calc 84.07 Est GFR (MDRD) Af Amer 75 Est GFR (MDRD) Non-Af 62 BUN/Creatinine Ratio 15.2 Glucose 108 H Calcium 9.0 Total Bilirubin 0.40 Direct Bilirubin 0.11 AST 18 ALT 25 Alkaline Phosphatase 102 Total Protein 6.9 Albumin 3.5 Globulin 3.4 Lipase 37 Urine Color Cancelled Yellow Urine Clarity Cancelled Urine pH Ur Specific [place] U Specif Grav (Refrac) Urine Protein Urine Glucose (UA) Urine Ketones Urine Occult Blood Urine Nitrite Urine Bilirubin Urine Urobilinogen Ur Leukocyte Esterase Urine RBC Urine WBC Ur Squamous Epith Cells Ur Transition Epith Cell Ur Renal Epithelial Cell Calcium Oxalate Crystal Uric Acid Crystals Triple Phos Crystals Other Crystals Amorphous Sediment Urine Bacteria Hyaline Casts Fine Granular Casts Coarse Granular Casts Waxy Casts RBC Casts WBC Casts Urine Mucus Urine Trichomonas Urine Yeast 01/07/23 01/07/23 01/07/23 19:20 19:20 19:20 WBC RBC Hgb Hct MCV MCH MCHC RDW Std Deviation RDW Coeff of Ananth Plt Count MPV Immature Gran % (Auto) Neut % (Auto) Lymph % (Auto) [place] % (Auto) Eos % (Auto) Baso % (Auto) Absolute Neuts (auto) Absolute Lymphs (auto) Nucleated RBC % Sodium Potassium Chloride Carbon Dioxide Anion Gap BUN Creatinine Estim Creat Clear Calc Est GFR (MDRD) Af Amer Est GFR (MDRD) Non-Af BUN/Creatinine Ratio Glucose Calcium Total Bilirubin Direct Bilirubin AST ALT Alkaline Phosphatase Total Protein Albumin Globulin Lipase Urine Color Urine Clarity Clear Urine pH Cancelled 6.0 Ur Specific [place] Cancelled 1.020 U Specif Grav (Refrac) Cancelled Urine Protein Cancelled Urine Glucose (UA) Urine Ketones Urine Occult Blood Urine Nitrite Urine Bilirubin Urine Urobilinogen Ur Leukocyte Esterase Urine RBC Urine WBC Ur Squamous Epith Cells Ur Transition Epith Cell Ur Renal Epithelial Cell Calcium Oxalate Crystal Uric Acid Crystals Triple Phos Crystals Other Crystals Amorphous Sediment Urine Bacteria Hyaline Casts Fine Granular Casts Coarse Granular Casts Waxy Casts RBC Casts WBC Casts Urine Mucus Urine Trichomonas Urine Yeast 01/07/23 01/07/23 01/07/23 19:20 19:20 19:20 WBC RBC Hgb Hct MCV MCH MCHC RDW Std Deviation RDW Coeff of Ananth Plt Count MPV Immature Gran % (Auto) Neut % (Auto) Lymph % (Auto) [place] % (Auto) Eos % (Auto) Baso % (Auto) Absolute Neuts (auto) Absolute Lymphs (auto) Nucleated RBC % Sodium Potassium Chloride Carbon Dioxide Anion Gap BUN Creatinine Estim Creat Clear Calc Est GFR (MDRD) Af Amer Est GFR (MDRD) Non-Af BUN/Creatinine Ratio Glucose Calcium Total Bilirubin Direct Bilirubin AST ALT Alkaline Phosphatase Total Protein Albumin Globulin Lipase Urine Color Urine Clarity Urine pH Ur Specific [place] U Specif Grav (Refrac) Urine Protein Negative Urine Glucose (UA) Cancelled Normal Urine Ketones Cancelled Negative Urine Occult Blood Cancelled Urine Nitrite Urine Bilirubin Urine Urobilinogen Ur Leukocyte Esterase Urine RBC Urine WBC Ur Squamous Epith Cells Ur Transition Epith Cell Ur Renal Epithelial Cell Calcium Oxalate Crystal Uric Acid Crystals Triple Phos Crystals Other Crystals Amorphous Sediment Urine Bacteria Hyaline Casts Fine Granular Casts Coarse Granular Casts Waxy Casts RBC Casts WBC Casts Urine Mucus Urine Trichomonas Urine Yeast 01/07/23 01/07/23 01/07/23 19:20 19:20 19:20 WBC RBC Hgb Hct MCV MCH MCHC RDW Std Deviation RDW Coeff of Ananth Plt Count MPV Immature Gran % (Auto) Neut % (Auto) Lymph % (Auto) [place] % (Auto) Eos % (Auto) Baso % (Auto) Absolute Neuts (auto) Absolute Lymphs (auto) Nucleated RBC % Sodium Potassium Chloride Carbon Dioxide Anion Gap BUN Creatinine Estim Creat Clear Calc Est GFR (MDRD) Af Amer Est GFR (MDRD) Non-Af BUN/Creatinine Ratio Glucose Calcium Total Bilirubin Direct Bilirubin AST ALT Alkaline Phosphatase Total Protein Albumin Globulin Lipase Urine Color Urine Clarity Urine pH Ur Specific [place] U Specif Grav (Refrac) Urine Protein Urine Glucose (UA) Urine Ketones Urine Occult Blood 10 H Urine Nitrite Cancelled Negative Urine Bilirubin Cancelled Negative Urine Urobilinogen Cancelled Ur Leukocyte Esterase Urine RBC Urine WBC Ur Squamous Epith Cells Ur Transition Epith Cell Ur Renal Epithelial Cell Calcium Oxalate Crystal Uric Acid Crystals Triple Phos Crystals Other Crystals Amorphous Sediment Urine Bacteria Hyaline Casts Fine Granular Casts Coarse Granular Casts Waxy Casts RBC Casts WBC Casts Urine Mucus Urine Trichomonas Urine Yeast 01/07/23 01/07/23 01/07/23 19:20 19:20 19:20 WBC RBC Hgb Hct MCV MCH MCHC RDW Std Deviation RDW Coeff of Ananth Plt Count MPV Immature Gran % (Auto) Neut % (Auto) Lymph % (Auto) [place] % (Auto) Eos % (Auto) Baso % (Auto) Absolute Neuts (auto) Absolute Lymphs (auto) Nucleated RBC % Sodium Potassium Chloride Carbon Dioxide Anion Gap BUN Creatinine Estim Creat Clear Calc Est GFR (MDRD) Af Amer Est GFR (MDRD) Non-Af BUN/Creatinine Ratio Glucose Calcium Total Bilirubin Direct Bilirubin AST ALT Alkaline Phosphatase Total Protein Albumin Globulin Lipase Urine Color Urine Clarity Urine pH Ur Specific [place] U Specif Grav (Refrac) Urine Protein Urine Glucose (UA) Urine Ketones Urine Occult Blood Urine Nitrite Urine Bilirubin Urine Urobilinogen Normal Ur Leukocyte Esterase Cancelled 25 H Urine RBC Cancelled 0-5 SEEN Urine WBC Cancelled Ur Squamous Epith Cells Ur Transition Epith Cell Ur Renal Epithelial Cell Calcium Oxalate Crystal Uric Acid Crystals Triple Phos Crystals Other Crystals Amorphous Sediment Urine Bacteria Hyaline Casts Fine Granular Casts Coarse Granular Casts Waxy Casts RBC Casts WBC Casts Urine Mucus Urine Trichomonas Urine Yeast 01/07/23 01/07/23 01/07/23 19:20 19:20 19:20 WBC RBC Hgb Hct MCV MCH MCHC RDW Std Deviation RDW Coeff of Ananth Plt Count MPV Immature Gran % (Auto) Neut % (Auto) Lymph % (Auto) [place] % (Auto) Eos % (Auto) Baso % (Auto) Absolute Neuts (auto) Absolute Lymphs (auto) Nucleated RBC % Sodium Potassium Chloride Carbon Dioxide Anion Gap BUN Creatinine Estim Creat Clear Calc Est GFR (MDRD) Af Amer Est GFR (MDRD) Non-Af BUN/Creatinine Ratio Glucose Calcium Total Bilirubin Direct Bilirubin AST ALT Alkaline Phosphatase Total Protein Albumin Globulin Lipase Urine Color Urine Clarity Urine pH Ur Specific [place] U Specif Grav (Refrac) Urine Protein Urine Glucose (UA) Urine Ketones Urine Occult Blood Urine Nitrite Urine Bilirubin Urine Urobilinogen Ur Leukocyte Esterase Urine RBC Urine WBC 0-5 SEEN Ur Squamous Epith Cells Cancelled 0 SEEN Ur Transition Epith Cell Cancelled Ur Renal Epithelial Cell Cancelled Calcium Oxalate Crystal Cancelled Uric Acid Crystals Cancelled Triple Phos Crystals Cancelled Other Crystals Cancelled Amorphous Sediment Cancelled Urine Bacteria Cancelled 0 SEEN Hyaline Casts Cancelled Fine Granular Casts Cancelled Coarse Granular Casts Cancelled Waxy Casts Cancelled RBC Casts Cancelled WBC Casts Cancelled Urine Mucus Cancelled Urine Trichomonas Urine Yeast 01/07/23 19:20 WBC RBC Hgb Hct MCV MCH MCHC RDW Std Deviation RDW Coeff of Ananth Plt Count MPV Immature Gran % (Auto) Neut % (Auto) Lymph % (Auto) [place] % (Auto) Eos % (Auto) Baso % (Auto) Absolute Neuts (auto) Absolute Lymphs (auto) Nucleated RBC % Sodium Potassium Chloride Carbon Dioxide Anion Gap BUN Creatinine Estim Creat Clear Calc Est GFR (MDRD) Af Amer Est GFR (MDRD) Non-Af BUN/Creatinine Ratio Glucose Calcium Total Bilirubin Direct Bilirubin AST ALT Alkaline Phosphatase Total Protein Albumin Globulin Lipase Urine Color Urine Clarity Urine pH Ur Specific [place] U Specif Grav (Refrac) Urine Protein Urine Glucose (UA) Urine Ketones Urine Occult Blood Urine Nitrite Urine Bilirubin Urine Urobilinogen Ur Leukocyte Esterase Urine RBC Urine WBC Ur Squamous Epith Cells Ur Transition Epith Cell Ur Renal Epithelial Cell Calcium Oxalate Crystal Uric Acid Crystals Triple Phos Crystals Other Crystals Amorphous Sediment Urine Bacteria Hyaline Casts Fine Granular Casts Coarse Granular Casts Waxy Casts RBC Casts WBC Casts Urine Mucus 0 SEEN Urine Trichomonas Cancelled Urine Yeast Cancelled Radiography Diagnostic Testing: Clinical Impression(s) from Imaging Studies Abdomen/Pelvis CT 01/07/23 18:33 IMPRESSION: (NOT LISTED IN ORDER OF SIGNIFICANCE) There is dilation of the common bile duct. A common bile duct stone is not seen. The CBD diameter is 11 mm. This is a stable finding. Non obstructive 5.2 mm left renal parenchymal stone. This is stable. There are surgical clips in the gallbladder fossa consistent with a prior cholecystectomy. There are multiple colonic diverticula consistent with diverticulosis. Other findings as above. Electronically Signed: Cosme Nicole MD at 19:29 EDT Reading Location ID and State: [facility] / OR , Service support , Discharge Plan Triage Chief Complaint: Flank Pain ED Provider: Joe Godinez Dx/Rx/DC Orders Clinical Impression: Acute flank pain, History of kidney stones Instructions: ED Flank Pain, Uncertain Cause Prescriptions: No Action ciprofloxacin HCl 250 mg tablet 250 mg PO Q12H Qty: 10 0RF Rx Instructions: 3-5 days lansoprazole [Prevacid] 30 mg Capsule,Delayed Release(Dr/Ec) 30 mg PO DAILY albuterol sulfate [Ventolin HFA] 90 mcg/actuation HFA aerosol inhaler 1 - 2 puff inhalation Q4H PRN PRN (Reason: Wheezing) 30 Days Qty: 8 0RF Primary Care Provider: Cami Robert Referrals: Cami Robert [Primary Care Provider] - Activity Restrictions/Additional Instructions: Thank you for trusting us with your care today! Please take Tylenol (2 pills, 650 mg), ibuprofen (2 pills, 400 mg) every 6 hours as needed for pain and fever control. Please return to the emergency department if your symptoms change or worsen. Please follow with your primary care physician for further outpatient evaluation and management. Disposition Disposition: Home, Self Care
== END 2023-01-07 21:10 | disposition home or self-care (01) ==
PROVIDERS: Emergency Provider Emergency Medicine; Visit Provider Emergency Medicine
DX: R10.32 Left lower quadrant pain (principal); Z87.442 Personal history of urinary calculi
CPT/HCPCS: 74176; 80048; 80076; 81001; 83690; 85025; 96361; 96374; 99283; J7030

== ENCOUNTER → 2023-01-21 | Outpatient (CLI) | payer BC, SELFPAY ==
[2023-01-21 10:36] LABS: Hemoglobin A1c 5.1 % (3.8-5.6)
[2023-01-21 10:50] LABS: Vitamin B12 275 pg/mL (211-911)
[2023-01-21 10:54] LABS: Anion Gap 5 (5-15); BUN 13 mg/dL (7-18); BUN/Creat Ratio 15.1 RATIO (10-20); Chloride 104 mmol/L (98-107); Creatinine, Serum 0.86 mg/dL (0.55-1.02); EST Glomerular Filtration Rate 73 mL/min (>60); Est Glom Filt Rate - Afr Amer 88 mL/min (>60); Glucose 101 mg/dL (74-106); Magnesium 2.4 mg/dL (1.6-2.6); Potassium 3.9 mmol/L (3.5-5.1); Sodium Level 137 mmol/L (136-145); Thyroid Stim Hormone (TSH) 1.43 uIU/mL (0.358-3.74)
== END | disposition home or self-care (01) ==
DX: R42 Dizziness and giddiness (principal)
CPT/HCPCS: 36415; 80048; 82306; 82607; 83036; 83735; 84443

== ENCOUNTER → 2023-01-24 | Outpatient (CLI) | payer BC, SELFPAY ==
--- NOTE | 2023-01-24 08:43 | CT_ITS ---
HISTORY: DIZZINESS. TECHNIQUE: Multiple axial images were obtained of the head without intravenous contrast. A radiation dose optimization technique was used for this scan. 231 images. COMPARISON: None. FINDINGS: BRAIN PARENCHYMA: No significant attenuation abnormality. No acute intra-axial hemorrhage. CSF SPACES: Cerebral ventricles, cortical sulci, and other extra-axial CSF spaces within normal limits in size for age. No midline shift or other significant mass effect. No acute extra-axial hemorrhage. OTHER: Intact calvarium. Mild fluid in the right posterior ethmoid. Unremarkable orbits. CT/Brain/Head without Contrast IMPRESSION: No acute intracranial process identified. Electronically Signed: Zhanna Lazo MD at 9:53 EDT ,
== END | disposition home or self-care (01) ==
PROVIDERS: Referring Provider Nurse Practitioner Family; Visit Provider Nurse Practitioner Family
DX: R42 Dizziness and giddiness (principal)
CPT/HCPCS: 70450

== ENCOUNTER 2023-04-17 15:30 | Outpatient (RCR) | payer BC, SELFPAY ==
--- NOTE | 2023-04-06 16:36 | HP.PTEVAL_ITS ---
Patient's Visit Information Visit Information Visit Information: YASMINE JASON is a 57 year old F referred to Physical Therapy by GRACE Delgado with a diagnosis of LBP with sciatica. Date of Evaluation: 04/06/23 Physical Therapist: Cosme Zaldivar, PT, ATC Visit Plan Frequency: 2-3x /Week Duration: 4-6 Weeks Plan: Postural edu, REIL, core strengthening ex's, and HEP Subjective Subjective: Pt reports she fell a couple months ago and landed on her back. Pt reports she has had LBP since then. Pt reports her pain is always better in the morning until she gets up and starts to walk, then she gets spasms in her LB. Pt reports she has not had any diagnostic tests performed at this time. Pt notes her pain will extend from her LB to her R leg at times. Pt reports the pain used to extend to her foot when the pain was at its worst. Now her pain only extends to her mid thigh region. Pt reports occasional sleep difficulty secondary to pain. Pt notes sitting increases her pain. Pt reports she has been on a steroid and a muscle relaxer which helps her pain. Pt notes walking will increase her pain at times as well. Pt reports stretching will help to decrease her pain at times. 5/10 pain at rest, 10/10 pain at worst. Pain LBP: Pain Intensity (Out of 10): 5 Pain Intensity Range: 10 Objective Objective: Neuro: B LE sensation is WNL to light touch. B patellar reflex= 2/3 MMT: B LE's are grossly 5/5 throughout with the exception of B hip flexor 4-/5 and is limited with LBP ROM: Pt is moderately limited with R SB and extension at this time Repeated movements: REIL centralized and decreased pain Balance/Special Test Scores Oswestry Low Back Score: 17 Goals Goal 1:: Decrease LBP x 50% to aid with sleep Goal Time Frame: 4-6 Weeks Goal 2:: Decrease the frequency and intensity of R LE radiculopathy x 50% to aid with increasing tolerance for ambulation Goal Time Frame: 4-6 Weeks Goal 3:: Pt will demonstrate proper posture both physically and verbally to aid with preventing future episodes of LBP Goal Time Frame: 4-6 Weeks Goal 4:: I with HEP Goal Time Frame: 4-6 Weeks Rehabilitation Potential Physical Therapy Diagnosis: Pt has LBP, R LE radiculopathy, and limited L/S extension ROM secondary to L/S disc derangement Rehabilitation Potential: Good Anticipated Interventions Patient/Client Instruction: Educate patient on: Condition and Plan of Care For the Purpose of:: To improve self management Therapeutic Exercise to Include: Strength training, Body mechanics, Postural training, Dynamic Lumbar Stabilization and Denny Exercises For the Purpose of:: To decrease pain, To increase ROM and To improve muscle performance and motor function Text: Thank you for the opportunity to evaluate your patient. For Medicare and Medicare HMO plans, please review the plan of care and approve it. It will need to be FAXED BACK to us at [phone] for Medicare purposes. For Medicare only, by signing this I certify the plan of care. Please let me know if there are questions or concerns regarding this plan of care. Physician Signature: Date:
--- NOTE | 2023-07-02 08:15 | HP.PT.NRP ---
Patient Information Patient Information: YASMINE JASON was seen in my office for initial evaluation on 04/06/23. The following Plan of Care was established for this patient: POC Established Initial Frequency: 2-3x /Week Initial Duration: 4-6 Weeks Anticipated Interventions Patient/Client Instruction: Educate patient on: Condition and Plan of Care For the Purpose of:: To improve self management Therapeutic Exercise to Include: Strength training, Body mechanics, Postural training, Dynamic Lumbar Stabilization and Denny Exercises For the Purpose of:: To decrease pain, To increase ROM and To improve muscle performance and motor function Last Seen Last Seen: This patient was last seen in our office . Pertinent comments regarding their Physical therapy will appear below: Pt was treated for 3 PT visits for LBP through the date of 04/17/23. Pt has not returned through todays date and is discontinued at this time. At this point I will be discontinuing this patient from physical therapy. I would be happy to see this patient again in the future if found appropriate by the physician. Thank you! Cosme Zaldivar, PT, ATC Balance/Gait/Functional tests Balance/Special Test Scores Oswestry Low Back Score: 17
== END 2023-04-17 19:00 | disposition home or self-care (01) ==
LOC: PT 15:30
PROVIDERS: Referring Provider Nurse Practitioner Family; Visit Provider Nurse Practitioner Family
DX: M54.50 Low back pain, unspecified (principal); M54.30 Sciatica, unspecified side
CPT/HCPCS: 97161; 97530

== ENCOUNTER → 2023-05-08 | Outpatient (CLI) | payer BC, SELFPAY | END | disposition home or self-care (01) | LOC: SL 19:56 | PROVIDERS: Referring Provider Nurse Practitioner Family; Visit Provider Nurse Practitioner Family | DX: G47.10 Hypersomnia, unspecified (principal) | CPT/HCPCS: 95810; 95811 ==

== ENCOUNTER → 2023-07-30 | Outpatient (CLI) | payer BC, SELFPAY ==
--- OUTSIDE RECORDS SUMMARY | 2023-07-30 10:43 | XMS RPT_ITS | CCD ---
Author Name Unknown Address [address] [facility] [address] [place] [address] Organization [facility] Care Team Providers Care Livestock Sales Representative Name Role Phone Bora Lundberg Unavailable Unavail able Bora Lundberg Unavailable Unavail able UNKNOWN Unavailable Unavailable SHANTAL WATSON Primary Care Physician Simone Bellamy DO Primary Care Provider Angelia SIMONE Webster Primary Care Unavailable Allergies Allergy Classification Reported Allergen(s) Allergy Type Date of Onset Reaction(s) Facility (4 sources) Acetaminophen / HYDROcodone; Translations: [acetaminophen-hy drocodone] Drug Allergy [facility] Work Phone: (6 sources) Codeine; Translations: [codeine] Drug Allergy 3 Shortness of Breath [facility] Work Phone: (4 sources) EPINEPHrine; Translations: [epinephrine] Drug Allergy [facility] Work Phone: (4 sources) Latex Allergy to substance Rash [facility] Work Phone: (4 sources) pantoprazole; Translations: [pantoprazole] Drug Allergy makes worse [facility] Work Phone: (4 sources) predniSONE; Translations: [prednisone] Drug Allergy [facility] Work Phone: Medications Current Medications Medication Drug Class(es) Dates Sig (Normalized) Sig (Original) doxycycline hyclate 100 mg oral capsule (1 source) Tetracycline-clas s Drug Start: 05-16-2022 End: 05-26-2022 take 1 capsule by mouth twice daily doxycycline hyclate (VIBRAMYCIN) 100 mg capsule Indications: Tick bite of abdominal wall, initial encounter Take 1 capsule by mouth twice daily for 10 days. 20 capsule 0 05/16/2022 05/26/2022 Active Completed/Discontinued Medications Medication Drug Class(es) Dates Sig (Normalized) Sig (Original) lansoprazole 30 mg delayed release oral capsule (1 source) Proton Pump Inhibitor Start: 09-16-2021 lansoprazole (PREVACID) 30 mg capsule Take by mouth. 0 09/16/2021 Active Problems Active Problems Problem Classification Problem Date Documented Date Episodic/Chronic Abdominal pain (2 sources) Pain in pelvis; Translations: [Right upper quadrant pain] 08-15-2021 Episodic Anxiety disorders (4 sources) Anxiety 07-23-2021 Chronic Cardiac dysrhythmias (4 sources) Palpitations 10-16-2020 Episodic Esophageal disorders (4 sources) Gastroesophageal reflux disease without esophagitis 10-16-2020 Chronic Genitourinary symptoms and ill-defined conditions (8 sources) Increased frequency of urination; Translations: [Microscopic hematuria] 07-23-2021 Episodic Malaise and fatigue (6 sources) Fatigue 10-16-2020 Episodic Nutritional deficiencies (4 sources) Vitamin D deficiency 10-16-2020 Chronic Other nutritional; endocrine; and metabolic disorders (4 sources) H/O: nutritional disorder 07-23-2021 Episodic Other nutritional; endocrine; and metabolic disorders (4 sources) History of nutritional deficiency 07-23-2021 Episodic Residual codes; unclassified (4 sources) Persistent insomnia 10-16-2020 Chronic Superficial injury; contusion (1 source) Tick bite; Translations: [Insect bite (nonvenomous) of abdominal wall, initial encounter] Episodic Unclassified (3 sources) Primary osteoarthritis, left shoulder / M19.012(ICD-10) Onset: 09-09-2017 Unclassified (1 source) Other specified postprocedural states / Z98.890(ICD-10) Onset: 09-09-2017 Unclassified (19 sources) Patient encounter status 07-23-2021 Past or Other Problems Problem Classification Problem Date Documented Da te Episodic/Chronic Unclassified (1 source) Primary osteoarthritis, left shoulder; Translations: [Primary osteoarthritis, left shoulder] Onset: 09-09-2017 Results Test Name Value Interpretation Reference Range Facil ity Vital Signs Date Time Vital Sign Value Performing Clinician Cristiane cardona 05-16-2022 17:39-0500 Body height 160 cm Divine Ball MAINTENANCE ADVISOR.FUND DIRECTOR Work Phone: [facility] 05-16-2022 17:39-0500 Body temperature 97 [degF] Divine Ball MAINTENANCE ADVISOR.FUND DIRECTOR Work Phone: [facility] 05-16-2022 17:39-0500 Body weight 81.19 kg Divine Ball MAINTENANCE ADVISOR.FUND DIRECTOR Work Phone: [facility] 05-16-2022 17:39-0500 Diastolic blood pressure 73 mm[Hg] Divine Ball MAINTENANCE ADVISOR.FUND DIRECTOR Work Phone: [facility] 05-16-2022 17:39-0500 Heart rate 77 /min Divine Ball MAINTENANCE ADVISOR.FUND DIRECTOR Work Phone: [facility] 05-16-2022 17:39-0500 Respiratory rate 16 /min Divine Ball MAINTENANCE ADVISOR.FUND DIRECTOR Work Phone: [facility] 05-16-2022 17:39-0500 SaO2% (BldA) [Mass fraction] 97 % Divine Ball MAINTENANCE ADVISOR.FUND DIRECTOR Work Phone: [facility] 05-16-2022 17:39-0500 Systolic blood pressure 143 mm[Hg] Divine Ball MAINTENANCE ADVISOR.FUND DIRECTOR Work Phone: [facility] Encounters Encounter Date Encounter Type Care Provider Facility Start: 05-16-2022 End: 05-16-2022 ambulatory [facility] Facility:[facility] Start: 05-16-2022 End: 05-16-2022 Office outpatient new 20 minutes Divine Ball MAINTENANCE ADVISOR.FUND DIRECTOR Work Phone: [facility] Procedures Date Procedure Procedure Detail Performing Clinician Cholecystectomy KLARISSA KELLEY MAINTENANCE ADVISOR-FUND DIRECTOR Hysterectomy KLARISSA BERNARD MAINTENANCE ADVISOR-FUND DIRECTOR Neuroma (morphologic abnormality) KLARISSA BERNARD MAINTENANCE ADVISOR-FUND DIRECTOR Tonsillectomy and adenoidectomy KLARISSA BERNARD MAINTENANCE ADVISOR-FUND DIRECTOR Plan of Treatment Date Care Activity Detail Author Start: 03-06-2022 Influenza vaccination INFLUENZA (#1) [facility] Start: 07-06-2021 DEPRESSION ASSESSMENT DEPRESSION ASS ESSMENT [facility] Start: 12-02-2017 SHINGRIX VACCINE (1 of 2) SHINGRIX V ACCINE (1 of 2) [facility] Start: 12-02-2012 COLOGUARD (FIT-DNA) COLOGUARD (FIT-D NA) [facility] Start: 12-02-2012 Colonoscopy COLONOSCOPY [facility] Start: 12-02-2012 COLORECTAL CANCER SCREENING COLORECTAL CANCER SCREENING [facility] Start: 12-02-[address] COLONOGRAPHY [facility] Start: 12-02-2012 DIABETES SCREEN DIABETES SCREEN [facility] Start: 12-02-2012 FECAL OCCULT BLOOD FECAL OCCULT BLOO D [facility] Start: 12-02-2012 LIPID SCREEN LIPID SCREEN [facility] Start: 12-02-2012 SIGMOIDOSCOPY SIGMOIDOSCOPY [facility] Start: 2007 Mammography MAMMOGRAM [facility] Start: 12-02-1997 HPV TESTING HPV TESTING [facility] Start: 12-02-1988 PAP TESTING PAP TESTING [facility] Start: 12-02-1986 Urine microalbumin profile DTAP,TDAP ,TD (1 - Tdap) [facility] Start: 12-02-1985 HEPATITIS C SCREENING HEPATITIS C SC REENING [facility] Start: 12-02-1985 HIV SCREENING HIV SCREENING [facility] Start: 06-04-1968 COVID-19 VACCINE (#1) COVID-19 VACCI NE (#1) [facility] Start: 1967 HEPATITIS B (1 of 3 - 3-dose series) HEPATITIS B (1 of 3 - 3-dose series) [facility] Payers Date Payer Category Payer Unknown [employer] PPO OOS [id number] 2021-Present [phone] [id number] [place] [address] PPO [id number] 2021 Unknown [id number] Unknown [id number] Social History Date Type Detail Facility Start: 03-16-2019 Ex-smoker (finding) [facility] Progress note 05-16-2022 Note Date & Type Note Facility 05-16-2022 Note HNO ID: [id number] Author: Divine Mora APRN.SURJIT Service: ? Author Type: Nurse Practitioner Type: Progress Notes Filed: 05/16/2022 6:07 PM Note Text: This note was created using NoteWriter. Subjective Yasmine Souza is a 56 year old female. HPI by patient: Yasmine is a 56 year old presenting to the office with the complaint of tick bite Started approximately yesterday. Was working the yard and noticed tick on her stomach later in the evening. She did pull the tick off but appears the head remains. Woke this am with swelling and wound to area. Denies fever or chills Covid Immunization Dates Overdue - COVID-19 VACCINE (1) Overdue - never done No completion, postpone, frequency change, or communication history exists for this topic. ALLERGIES Codeine Shortness of Breath Comment:chest pains No family history on file. Social History Tobacco Use Smoking status: Never Review of Systems Constitutional: Negative. HENT: Negative. Respiratory: Negative. Cardiovascular: Negative. Skin: Positive for wound (Tick bite to abdomen). Objective BP 143/73 Pulse 77 Temp 36.1 ?C (97 ?F) Resp 16 Ht 160 cm (5' 3 ) Wt 81.2 kg (179 lb) SpO2 97% BMI 31.71 kg/m? Physical Exam Vitals and nursing note reviewed. Constitutional: Appearance: She is well-developed. Pulmonary: Effort: Pulmonary effort is normal. Skin: General: Skin is warm and dry. Findings: Erythema and wound present. Comments: Erythema and induration to RUQ of abdomen. SMall purple center with black dot (likely tick head remaining in skin) attempted removal in office without success. Neurological: Mental Status: She is alert and oriented to person, place, and time. Assessment and Plan ASSESSMENT/PLAN: 1. Tick bite of abdominal wall, initial encounter - ICD9: 911.4, E906.4, ICD10: S30.861A, W57.XXXA - Follow up with PCP or in ED if any worsening problems arise - DOXYCYCLINE HYCLATE 100 MG CAPSULE Divine Mora APRN.SURJIT Medical Decision Making: Problems: Moderate: New problem with uncertain prognosis Data: Unique source(s) for external note(s) reviewed: 1 Risk: Moderate: Drug management Medical Decision Making Level: 4 - Moderate Remove COVID[address] [facility] History of Present illness Narrative 05-16-2022 Divine Mora APRN.CNP - 05/16/2022 6:03 PM EST Note Date & Type Note Facility 05-16-2022 History of Presen t illness Narrative Images from the original note were not included. This note was created using [employer]. Subjective Yasmine Souza is a 56 year old female. HPI by patient: Yasmine is a 56 year old presenting to the office with the complaint of tick bite Started approximately yesterday. Was working the yard and noticed tick on her stomach later in the evening. She did pull the tick off but appears the head remains. Woke this am with swelling and wound to area. Denies fever or chills Covid Immunization Dates Overdue - COVID-19 VACCINE (1) Overdue - never done No completion, postpone, frequency change, or communication history exists for this topic. ALLERGIES Codeine Shortness of Breath Comment:chest pains No family history on file. Social History Tobacco Use Smoking status: Never Review of Systems Constitutional: Negative. HENT: Negative. Respiratory: Negative. Cardiovascular: Negative. Skin: Positive for wound (Tick bite to abdomen). Objective BP 143/73 Pulse 77 Temp 36.1 C (97 F) Resp 16 Ht 160 cm (5' 3 ) Wt 81.2 kg (179 lb) SpO2 97% BMI 31.71 kg/m Physical Exam Vitals and nursing note reviewed. Constitutional: Appearance: She is well-developed. Pulmonary: Effort: Pulmonary effort is normal. Skin: General: Skin is warm and dry. Findings: Erythema and wound present. Comments: Erythema and induration to RUQ of abdomen. SMall purple center with black dot (likely tick head remaining in skin) attempted removal in office without success. Neurological: Mental Status: She is alert and oriented to person, place, and time. Assessment and Plan ASSESSMENT/PLAN: 1. Tick bite of abdominal wall, initial encounter - ICD9: 911.4, E906.4, ICD10: S30.861A, W57.XXXA - Follow up with PCP or in ED if any worsening problems arise - DOXYCYCLINE HYCLATE 100 MG CAPSULE Divine Mora APRN.CNP Medical Decision Making: Problems: Moderate: New problem with uncertain prognosis Data: Unique source(s) for external note(s) reviewed: 1 Risk: Moderate: Drug management Medical Decision Making Level: 4 - Moderate Remove COVID19 association documented in this encounter [facility] Instructions 05-16-2022 Patient Instructions Note Date & Type Note Facility 05-16-2022 Instructions Divine Moar APRN.CNP - 05/16/2022 5:58 PM EST Avoiding Tick Bites How can I avoid tick bites? If you are planning an outdoor activity, especially those in a heavily wooded area, it is important to follow a few simple precautions to protect yourself from tick bites. Wear long sleeved, light-colored clothing, with tightly woven fabric. This gives ticks less area to target and allows you to see ticks on your clothing. When traveling through the [place] or grassy [place], stay near the center of the trails. At home, make sure that you keep your lawn mowed and bushes and trees trimmed as short as possible. If you choose to apply tick repellents, such as those containing DEET, try to avoid spraying them directly to your bare skin. (high concentrations of DEET may have harmful effects on the nervous system.) Apply the spray to your clothing, socks, shoes, tents and backpacks. When returning from the outdoors, check for ticks. Be especially observant of hair, body folds, ears, underarms and the back. Check your clothes and gear for ticks and wash these items immediately. What if I have been bitten by a tick? If you discover a tick, remove it immediately. The longer the tick feeds, the greater chance that it can transmit its bacteria to you. The easiest removal method is to use a pair of tweezers, grasp the tick as close to your skin as possible, and gently pull the tick off. Then, thoroughly wash your hands and the bite area with rubbing alcohol to prevent transmission to other areas of your body. When should I call the doctor? It is best to wait and see whether you develop any signs or symptoms. If a large red errol forms around the tick bite or if you develop fever, flu-like symptoms, rash, or more severe illness, contact your doctor right away. Your doctor can determine whether these symptoms might be caused by a tick-borne disease, and whether antibiotics will be needed. Is there a vaccine for preventing tick-borne disease in humans? Currently there are vaccines being tested, but there are no guarantees that they will be effective. The best option is to take precautions so that tick bites do not occur in the first place. Early Signs and Symptoms (3 to 30 days after tick bite) Fever, chills, headache, fatigue, muscle and joint aches, and swollen lymph nodes Erythema migrans (EM) rash: Occurs in approximately 70 to 80 percent of infected persons Begins at the site of a tick bite after a delay of 3 to 30 days (average is about 7 days) Expands gradually over a period of days reaching up to 12 inches or more (30 cm) across May feel warm to the touch but is rarely itchy or painful Sometimes clears as it enlarges, resulting in a target or bull's-eye appearance May appear on any area of the body Later Signs and Symptoms (days to months after tick bite) Severe headaches and neck stiffness Additional EM rashes on other areas of the body Arthritis with severe joint pain and swelling, particularly the knees and other large joints. Facial or Rios's palsy (loss of muscle tone or droop on one or both sides of the face) Intermittent pain in tendons, muscles, joints, and bones Heart palpitations or an irregular heart beat (Lyme carditis) Episodes of dizziness or shortness of breath Inflammation of the brain and spinal cord Nerve pain Shooting pains, numbness, or tingling in the hands or feet Problems with short-term memory documented in this encounter [facility] Evaluation + Plan note 08-15-2021 LaboratoryRadiology Note Date & Type Note Facility 08-15-2021 Evaluation + Plan note Future Scheduled TestsVitamin D Level 10/23/21US Abdomen Limited 08/15/21US Pelvis Non-OB Complete 08/15/21US Bladder 08/08/21 [facility] Evaluation + Plan note 07-23-2021 Radiology Note Date & Type Note Facility 07-23-2021 Evaluation + Plan note Future Scheduled TestsUS Bladder 07/23/21US Renal 07/23/21[facility] Mammo Screening Bilateral w/ Jermaine 07/23/21 [facility] Evaluation + Plan note LaboratoryRadiology Note Date & Type Note Facility Evaluation + Plan note Future Appointments Appointment Date:08/14/2021 07:30:00 AM Scheduled Provider: Location:RAD Appointment Type:[facility] Mammogram Screening Bilateral w/ Jermaine Future Scheduled TestsVitamin D Level 10/23/21US Bladder 08/08/21MA Mammo Screening Bilateral w/ Jermaine 08/14/21 [facility] Evaluation + Plan note LaboratoryRadiology Note Date & Type Note Facility Evaluation + Plan note Future Appointments Appointment Date:08/15/2021 09:00:00 AM Scheduled Provider:KLARISSA BERNARD Location:[facility] Appointment Type:PC OV Appointment Date:08/16/2021 01:00:00 PM Scheduled Provider: Location:RAD Appointment Type:US Breast Left Limited Future Scheduled TestsVitamin D Level 10/23/21US Breast Left Limited 08/16/21US Bladder 08/08/21 [facility] Evaluation note Note Date & Type Note Facility documented in this encounter [facility] course Narrative Note Date & Type Note Facility Hospital course Narrative No data available for this section [facility] Hospital Discharge instructions Note Date & Type Note Facility Hospital Discharge instructions No data available for this section [facility] Summary Purpose Family History No Family History Records FoundNo Family History Records FoundNo Family History Records Found Advance Directives No Advanced Directives Records FoundNo Advanced Directives Records FoundNo Advanced Directives Records Found Additional Source Comments INFORMATION SOURCE (unrecogn ized section and content) DATE CREATED AUTHOR AUTHOR'S ORGANIZ ATION 08/17/2021 [facility] ([place]) DATE CREATED AUTHOR AUTHOR'S REGLA PEREZ 05/17/2022 [facility] Source Comments (unrecognize d section and content) In the event this informatio n is protected by the Federal Confidentiality of Alcohol and Drug Abuse Patient Records regulations: The Federal rules restrict any use of the information to criminally investigate or prosecute any alcohol or drug abuse patient.[facility] Reason for Visit (unrecogniz ed section and content) Care Teams (unrecognized sec tion and content) FOR RECORDS PERTAINING TO PATIENTS WHO ARE OR HAVE BEEN ENROLLED IN A CHEMICAL DEPENDENCY/SUBSTANCEABUSE PROGRAM, SOME INFORMATION MAY BE OMITTED. This clinical summary was aggregated from multiple sources. Caution should be exercised in using it in the provision of clinical care. This summary normalizes information from multiple sources, and as a consequence, information in this document may materially change the coding, format and clinical context of patient data. In addition, data may be omitted in some cases. CLINICAL DECISIONS SHOULD BE BASED ON THE PRIMARY CLINICAL RECORDS. [facility]. provides no warranty or guarantee of the accuracy or completeness of information in this document.
== END | disposition home or self-care (01) ==
LOC: SL 10:09
PROVIDERS: Visit Provider Nurse Practitioner Acute Care
DX: Z46.89 Encounter for fitting and adjustment of other specified devices (principal)

== ENCOUNTER → 2023-11-12 | Outpatient (CLI) | payer BC, SELFPAY ==
--- NOTE | 2023-11-12 16:38 | RAD_ITS ---
STUDY: X-RAY - LEFT WRIST REASON FOR EXAM: Female, 57 years old. INJURY TO WRIST,HAND,FINGERS TECHNIQUE: 3 view(s) of the wrist were obtained. COMPARISON: None. FINDINGS: Normal visualized distal radius and ulna. Normal radiocarpal articulation. Normal distal radioulnar articulation. Normal carpal bones. Normal carpal articulations. Normal carpometacarpal articulation of the thumb. Normal second through fifth carpometacarpal articulations. Normal visualized metacarpal bones. The soft tissue structures are unremarkable. RAD/Wrist min 3 Views IMPRESSION: Normal x-ray examination of the wrist. Electronically Signed: Robert Latif MD at 13:44 EDT ,
== END | disposition home or self-care (01) ==
LOC: MTRAD 16:33
PROVIDERS: Referring Provider Nurse Practitioner Family; Visit Provider Nurse Practitioner Family
DX: S69.82XA Other specified injuries of left wrist, hand and finger(s), initial encounter (principal)
CPT/HCPCS: 73110

== ENCOUNTER → 2023-11-25 | Outpatient (CLI) | payer BC, SELFPAY ==
[2023-11-25 07:33] LABS: AST(SGOT) 16 U/L (15-37); Alanine Aminotransfer ALT/SGPT 21 U/L (13-56); Albumin, Serum 3.5 g/dL (3.2-5.0); Alkaline Phosphatase 95 U/L (45-117); Anion Gap 5 (5-15); BUN 13 mg/dL (7-18); BUN/Creat Ratio 15.5 RATIO (10-20); Chloride 106 mmol/L (98-107); Cholesterol 152 mg/dL (200); Creatinine, Serum 0.84 mg/dL (0.55-1.02); EST Glomerular Filtration Rate 74 mL/min (>60); Est Glom Filt Rate - Afr Amer 90 mL/min (>60); Globulin 3.6 g/dL (2.2-4.2); Glucose 100 mg/dL (74-106); High Density Lipoprotein 51 mg/dL; Protein, Total 7.1 g/dL (6.4-8.2); Sodium Level 138 mmol/L (136-145); Triglycerides 91 mg/dL; Very Low Density Lipoprotein 18 mg/dL (5-40)
[2023-11-25 09:53] LABS: Hemoglobin A1c 5.1 % (3.8-5.6)
[2023-11-25 14:09] LABS: Absolute Lymphocyte Count 1.68 X10^3/uL (0.83-4.51); Absolute Neutrophil Count 3.7 X10^3/uL (2.0-7.7); Basophil# 0.03 X10^3/uL; Basophil% 0.5 % (0-1); Eosinophils% 3.3 % (0-5); Hemoglobin 13.8 g/dL (12.0-15.0); Lymphocyte # 1.68 X10^3/ul (0.83-4.51); Lymphocyte % 27.5 % (19-41); Mean Corp Hgb Conc 32.9 g/dL (32-36); Mean Corpuscular Hgb 29.6 pg (27.0-32.0); Mean Corpuscular Volume 89.9 fL (81-99); Mean Platelet Vol. 9.8 fl (6.2-12.0); Monocyte# 0.47 X10^3/uL; Monocyte% 7.7 % (0-10); NRBC Flagged by Analyzer 0 % (0-5); Neutrophil # 3.71 X10^3/uL (2.7-7.7); Neutrophil % 60.7 % (47-70); Platelet Count 267 K/mm3 (150-450); RBC Distribution Width CV 13.2 % (11.6-14.6); RBC Distribution Width SD 42.7 fl (35.1-43.9); Red Blood Count 4.67 M/mm3 (4.2-5.4); White Blood Count 6.1 K/mm3 (4.4-11.0)
== END | disposition home or self-care (01) ==
LOC: LAB 05:54
PROVIDERS: PCP Nurse Practitioner Family; Referring Provider Nurse Practitioner Family; Visit Provider Nurse Practitioner Family
DX: Z00.00 Encounter for general adult medical examination without abnormal findings (principal); E66.9 Obesity, unspecified
CPT/HCPCS: 36415; 80053; 80061; 83036; 84443; 85025

== ENCOUNTER → 2024-05-17 | Outpatient (CLI) | payer BC, SELFPAY ==
--- NOTE | 2024-05-17 06:23 | RAD_ITS ---
STUDY: X-RAY - ABDOMEN/PELVIS REASON FOR EXAM: Female, 58 years old. ABDOMINAL PAIN TECHNIQUE: Frontal views COMPARISON: None. FINDINGS: There is an unremarkable bowel gas pattern. There is no demonstrated free abdominal air. The visualized liver, spleen and kidneys are grossly normal in size and morphology. Surgical clips in the right upper quadrant likely from prior cholecystectomy. Normal soft tissue structures. Normal visualized osseous structures. RAD/Abdomen Single View IMPRESSION: Normal x-ray examination of the abdomen and pelvis. Electronically Signed: Bennie Fernando DO at 8:07 EST ,
[2024-05-17 06:59] LABS: Absolute Lymphocyte Count 1.82 X10^3/uL (0.83-4.51); Absolute Neutrophil Count 3.9 X10^3/uL (2.0-7.7); Basophil# 0.04 X10^3/uL; Basophil% 0.6 % (0-1); Eosinophil# 0.25 X10^3/uL; Eosinophils% 3.8 % (0-5); Hematocrit 43.7 % (37-47); Hemoglobin 15.1 g/dL (12.0-15.0); Lymphocyte # 1.82 X10^3/ul (0.83-4.51); Lymphocyte % 27.8 % (19-41); Mean Corp Hgb Conc 34.6 g/dL (32-36); Mean Corpuscular Hgb 30.6 pg (27.0-32.0); Mean Corpuscular Volume 88.6 fL (81-99); Mean Platelet Vol. 9.6 fl (6.2-12.0); Monocyte# 0.52 X10^3/uL; NRBC Flagged by Analyzer 0 % (0-5); Neutrophil # 3.87 X10^3/uL (2.7-7.7); Neutrophil % 59.2 % (47-70); Platelet Count 294 K/mm3 (150-450); RBC Distribution Width CV 12.6 % (11.6-14.6); RBC Distribution Width SD 41.1 fl (35.1-43.9); Red Blood Count 4.93 M/mm3 (4.2-5.4); White Blood Count 6.5 K/mm3 (4.4-11.0)
[2024-05-17 07:41] LABS: Anion Gap 7 (5-15); BUN 15 mg/dL (7-18); BUN/Creat Ratio 16.4 RATIO (10-20); Calcium,Total 9.2 mg/dL (8.5-10.1); Chloride 108 mmol/L (98-107); Creatinine, Serum 0.92 mg/dL (0.55-1.02); EST Glomerular Filtration Rate 67 mL/min (>60); Est Glom Filt Rate - Afr Amer 82 mL/min (>60); Glucose 104 mg/dL (74-106); Sodium Level 140 mmol/L (136-145)
== END | disposition home or self-care (01) ==
LOC: LAB 06:11
PROVIDERS: PCP Nurse Practitioner Family; Referring Provider Nurse Practitioner Family; Visit Provider Nurse Practitioner Family
DX: R10.9 Unspecified abdominal pain (principal)
CPT/HCPCS: 36415; 74018; 80048; 85025; 87086; 87088

== ENCOUNTER → 2024-05-17 | Outpatient (CLI) | payer BC, SELFPAY | END | disposition home or self-care (01) | LOC: LABSPEC 08:04 | PROVIDERS: PCP Nurse Practitioner Family; Visit Provider Nurse Practitioner Family | DX: R10.9 Unspecified abdominal pain (principal) | CPT/HCPCS: 87086 ==

== ENCOUNTER → 2024-10-06 | Outpatient (CLI) | payer BC, SELFPAY | END | disposition home or self-care (01) | LOC: LABSPEC 08:52 | PROVIDERS: PCP Nurse Practitioner Family; Visit Provider Family Medicine | DX: R30.0 Dysuria (principal); R10.9 Unspecified abdominal pain | CPT/HCPCS: 87086; 87088 ==

== ENCOUNTER → 2024-10-20 | Outpatient (CLI) | payer BC, SELFPAY ==
[2024-10-20 17:34] LABS: ALB/GLOB Ratio 1.4 RATIO (0.9-2.4); AST(SGOT) 21 U/L (<=31); Alanine Aminotransfer ALT/SGPT 20 U/L (<=34); Albumin, Serum 4.3 g/dL (3.5-5.0); Alkaline Phosphatase 100 U/L (35-104); Anion Gap 11 (5-15); BUN 15 mg/dL (4-19); BUN/Creat Ratio 18.8 RATIO (10-20); Calcium,Total 9.3 mg/dL (7.6-11.0); Carbon Dioxide 23.8 mmol/L (21.0-32.0); Chloride 102 mmol/L (98-108); EST Glomerular Filtration Rate 86 (>60); Globulin 3.1 g/dL (2.2-4.2); Glucose 98 mg/dL (70-99); Iron 91 ug/dL (50-170); Iron Binding Capacity,Total 286 ug/dL (250-450); Iron Binding Capacity,Unsat 195 ug/dL (228-428); Protein, Total 7.4 g/dL (5.9-8.4); Sodium Level 137 mmol/L (133-145); Total Bilirubin 0.49 mg/dL (0.00-1.30)
[2024-10-20 17:36] LABS: Vitamin B12 335 pg/mL (180-914); Vitamin D,25 Hydroxy 13.6 ng/mL (30-100)
== END | disposition home or self-care (01) ==
LOC: VSLAB 16:26
PROVIDERS: PCP Nurse Practitioner Family; Visit Provider Nurse Practitioner Family
DX: E55.9 Vitamin D deficiency, unspecified (principal); K76.0 Fatty (change of) liver, not elsewhere classified; R53.83 Other fatigue
CPT/HCPCS: 36415; 80053; 82306; 82607; 83540; 83550; 84439; 84443

== ENCOUNTER → 2024-12-05 | Outpatient (CLI) | payer BC, SELFPAY ==
--- NOTE | 2024-12-05 11:40 | RAD_ITS ---
PROCEDURE: HAND 2 VIEWS 12/05/2024 REASON FOR EXAM: PAIN IN LEFT HAND, ALONG LEFT THUMB X 1 MONTH TECHNIQUE: 2 view(s) of the left hand COMPARISON: Left wrist radiographs on 11/12/2023 FINDINGS: No fracture or traumatic malalignment. Joint spaces are predominantly maintained. Bone mineral density is subjectively normal. Soft tissues are unremarkable. RAD/Hand 2 Views IMPRESSION: Unremarkable radiographs of the left hand. Reading Location: [facility]
== END | disposition home or self-care (01) ==
LOC: MTRAD 11:39
PROVIDERS: PCP Nurse Practitioner Family; Referring Provider Nurse Practitioner Family; Visit Provider Nurse Practitioner Family
DX: M79.642 Pain in left hand (principal)
CPT/HCPCS: 73120; 73130